=== PATIENT | male | born 1995 | race African-American/Black ===

== ENCOUNTER 2019-07-06 00:01 | Emergency (ER) | payer OTHER ==
[~2019-07-06] VITALS: Ht 170.2 cm; Wt 59.1 kg
--- NOTE | 2019-07-06 01:04 | REPVR ---
PROCEDURE INFORMATION: Exam: CT Abdomen And Pelvis Without Contrast Exam date and time: 07/06/2019 12:27 AM Age: 23 years old Clinical indication: Screening exam; Other: F. B. ; Patient HX: Swallowed small toothbrush; Additional info: Fb eval TECHNIQUE: Imaging protocol: Computed tomography of the abdomen and pelvis without contrast. Radiation optimization: All CT scans at this facility use at least one of these dose optimization techniques: automated exposure control; mA and/or kV adjustment per patient size (includes targeted exams where dose is matched to clinical indication); or iterative reconstruction. COMPARISON: No relevant prior studies available. FINDINGS: Liver: Unremarkable as visualized on these noncontrast images. No mass. Gallbladder and bile ducts: No calcified stones. No ductal dilation. Pancreas: Normal contour. No ductal dilation. Spleen: Unremarkable as visualized on these noncontrast images. No splenomegaly. Adrenals: No mass. Kidneys and ureters: Unremarkable as visualized. No hydronephrosis. Stomach and bowel: There is a cluster of linear hyperdense foreign bodies in parallel arrangement within the stomach. This can be consistent with the bristles of a toothbrush given the clinical history. Moderate fecal material identified within the colon. Evaluation of bowel is limited by the absence of oral contrast. Colonic diverticula are identified, without acute inflammatory stranding of the adjacent mesentery. Appendix: No evidence of appendicitis. Intraperitoneal space: No free air. Vasculature: No abdominal aortic aneurysm. Lymph nodes: No enlarged lymph nodes. Bladder: Unremarkable as visualized. Reproductive: Unremarkable as visualized. Bones/joints: Mild disc bulging is identified within the lumbar spine. Soft tissues: Unremarkable. IMPRESSION: 1. There is a cluster of linear foreign bodies within the stomach. This can be consistent with the bristles of a toothbrush given the clinical history. 2. Diverticulosis. 3. Additional findings described above. Electronically signed by: Juancho Sow On 07/06/2019 01:04:35 AM
--- NOTE | 2019-07-06 01:18 | REPVR ---
PROCEDURE INFORMATION: Exam: CT Chest Without Contrast Exam date and time: 07/06/2019 12:27 AM Age: 23 years old Clinical indication: Screening exam; Other screening; Patient HX: F. B. Swallowed small toothbrush; Additional info: Fb eval TECHNIQUE: Imaging protocol: Computed tomography of the chest without contrast. Radiation optimization: All CT scans at this facility use at least one of these dose optimization techniques: automated exposure control; mA and/or kV adjustment per patient size (includes targeted exams where dose is matched to clinical indication); or iterative reconstruction. COMPARISON: No relevant prior studies available. FINDINGS: Lungs: The pulmonary apices extend out of the field of view of this study. The lungs are otherwise clear, without consolidation. No lung mass or dominant lung nodule identified within the visualized lungs. Pleural space: No pneumothorax. No pleural effusion. Heart: A small amount of fluid is seen in the superior pericardial recess. No cardiomegaly. Mediastinum: There is isodensity within the anterior mediastinum, likely representing thymic tissue. Nonspecific hyperdensity is identified of the distal esophageal wall, suggestive of artifact. Isodensity is identified within the adjacent lumen of the esophagus. A foreign body cannot be excluded. Aorta: No aortic aneurysm. Lymph nodes: No significant mediastinal lymphadenopathy. Evaluation for hilar lymph nodes is limited by the absence of intravenous contrast. Small nonspecific axillary lymph nodes identified bilaterally. Bones/joints: No acute fracture. Soft tissues: Unremarkable. Other findings: For discussion of findings involving the abdomen and pelvis, refer to the abdomen/pelvis CT report from the same day. IMPRESSION: 1. Nonspecific hyperdensity is identified of the distal esophageal wall, suggestive of artifact. Isodensity is identified within the adjacent lumen of the esophagus. A foreign body cannot be excluded. Correlation with upper endoscopy suggested. 2. Additional findings described above. Electronically signed by: Juancho Sow On 07/06/2019 01:18:07 AM
[2019-07-06 01:55] VITALS: BP 135/78
== END 2019-07-06 01:57 | disposition short-term general hospital (02) ==
LOC: M ED 00:01
DX: T18.2XXA Foreign body in stomach, initial encounter (principal); R45.851 Suicidal ideations; Y92.148 Other place in prison as the place of occurrence of the external cause; K57.30 Diverticulosis of large intestine without perforation or abscess without bleeding